=== PATIENT | male | born 1960 | race Caucasian/White ===

== ENCOUNTER → 2020-03-13 | Outpatient (CLI) | payer OTHER ==
--- NOTE | 2020-03-13 12:54 | RAD ---
EXAM: Lumbar spine, 2 views. HISTORY: Pain. COMPARISON: None. FINDINGS: 2 views of the lumbar spine are obtained. There is mild levoscoliosis centered at L3. There is no significant listhesis. The vertebral bodies are normal in height. There is degenerative endplate remodeling with anterior predominant spurring at L2-L3 and L3-L4. There is facet arthropathy predominantly the lower lumbar levels. IMPRESSION: 1. Mild lumbar scoliosis. 2. Multilevel degenerative change, described above. Electronically signed by: Karly López MD (03/13/2020 12:51 PM) [id number]
--- NOTE | 2020-03-13 14:44 | RAD ---
2 views the cervical spine without comparison for neck pain, history of C4-5 laminectomy. FINDINGS: There is reversal of normal cervical lordosis with extensive degenerative and postsurgical changes. Posterior elements of C4-5 or surgically absent. There is fusion of C5-6, with severe discogenic disease at C3-4, C4-5, and C6-7, and to a lesser degree at C7-T1. Bulky anterior osteophytes are seen at all levels. Prevertebral soft tissues are grossly unremarkable. Atlantoaxial articulation is intact. IMPRESSION: 1. Severe multilevel degenerative disc disease from C3 through C7, with fusion of C5 and C6. 2. Postsurgical changes of laminectomy C4 and C5. Electronically signed by: Jeffry Sanchez MD (03/13/2020 2:41 PM) [id number]
== END | disposition home or self-care (01) ==
LOC: RAD 12:02
PROVIDERS: ATTEND Anesthesiology Pain Medicine
DX: M47.816 Spondylosis without myelopathy or radiculopathy, lumbar region (principal); M43.22 Fusion of spine, cervical region; M41.86 Other forms of scoliosis, lumbar region; M50.323 Other cervical disc degeneration at C6-C7 level
CPT/HCPCS: 72040; 72100